=== PATIENT | female | born 1970 | race Caucasian/White ===

== ENCOUNTER 2023-12-19 06:53 | Day surgery (SDC) | payer MEDICAID ==
[~2023-12-19 06:53] MED LIST: Albuterol 0.083% 2.5 MG/3 ML Neb Soln NEB PRN; Metoclopramide 10 MG/2 ML SDV IVPUSH PRN; Morphine 2 MG/ML SYRINGE IVPUSH PRN; Naloxone 0.4 MG/ML SDV IVPUSH PRN; Ondansetron 4 MG/2 ML SDV IVPUSH PRN; droPERidol 5 MG/2 ML SDV IVPUSH PRN; fentaNYL 50 MCG/ML SDV IVPUSH PRN
[2023-12-19] MEDS: Lactated Ringers 1,000 ML IV SCH (07:20)
[2023-12-19] MEDS ORDERED: Bupivacaine 0.5%/EPINEPHrine 1:200,000 30 ML SDV ONE (07:20)
[2023-12-19] MEDS ORDERED: fentaNYL 100 MCG/2 ML SDV ONE ×2 (07:23→08:45)
[2023-12-19] MEDS ORDERED: Ketamine HCL/NACL, ISO-OSM 50 MG/5 ML Syringe ONE (07:23)
[2023-12-19] MEDS ORDERED: Propofol 200 MG/20 ML SDV ONE (07:23)
[2023-12-19] MEDS ORDERED: dexmedeTOMIDine HCl 200 MCG/2 ML SDV ONE (07:23)
[2023-12-19] MEDS ORDERED: Water For Injection, Sterile 20 ML ONE (07:24)
[2023-12-19] MEDS ORDERED: Scopalamine 1mg/3day Transdermal Patch ONE (07:28)
[2023-12-19] MEDS ORDERED: Scopalamine 1mg/3day Transdermal Patch TOP ONE (07:31)
[2023-12-19] MEDS ORDERED: ceFAZolin 2 GM in Sodium Chloride 0.9% 50 ML IV ONE (08:00)
[2023-12-19] MEDS ORDERED: Ondansetron 4 MG/2 ML SDV ONE (08:02)
[2023-12-19] MEDS ORDERED: Dexamethasone 4 MG/ML 5 ML MDV ONE (08:02)
[2023-12-19] MEDS ORDERED: ceFAZolin 2 GM Vial ONE (08:02)
[2023-12-19] MEDS: HYDROmorphone 1 MG/ML Syringe IVPUSH PRN (09:38)
[2023-12-19] MEDS ORDERED: Ketorolac 30 MG/ML SDV ONE (09:56)
== END 2023-12-19 12:20 | disposition home or self-care (01) ==
LOC: MW.SDS 06:53
PROVIDERS: ATTEND Orthopaedic Surgery
DX: S83.281A Other tear of lateral meniscus, current injury, right knee, initial encounter (principal); S83.241A Other tear of medial meniscus, current injury, right knee, initial encounter; X58.XXXA Exposure to other specified factors, initial encounter
CPT/HCPCS: 29880; A9270; J0131; J0690; J1100; J1170; J1885; J2405; J2704; J3010; J7120; J3490